=== PATIENT | male | born 1990 | race Caucasian/White ===

== ENCOUNTER 2016-10-12 19:39 | Emergency (ER) | payer BC ==
[2016-10-12] MEDS ORDERED: DEXAMETHASONE SOD PHOSPHATE 10 MG/ML VIAL IM ONE (22:30)
--- NOTE | 2016-10-12 22:31 | ERNOTE ---
Date of Service: 10/12/16 Time Seen by Provider: 10/12/16 22:14 Stated Complaint: COUGH Presenting Symptoms:: cough Source: patient Exam Limitations: no limitations Immunizations: IMMUNIZATION HX Immunizations Up to Date No History of Influenza Vaccine No Hx Pneumococcal Vaccination No Allergies/Adverse Reactions: Allergies ibuprofen Allergy (Intermediate, Verified 10/12/16 20:01) Hives Home Medications: HOME MEDICATIONS Acetaminophen [Tylenol] 325 mg PO PRN PRN 03/12/14 [Last Taken Unknown] Benzonatate [Tessalon Perle] 100 mg PO TID 10/12/16 [Last Taken 10/12/16 18:00] Dm/Pseudoephed/Acetaminophen [Day-Time Cold-Flu Softgel] 2 tab PO 10/12/16 [ Last Taken 10/12/16 19:00] Fluticasone Propionate [Flonase] 2 spray NS DAILY 10/12/16 [Last Taken Unknown] - History of Present Ilness Narrative: Coughing for one week and does not seem to be improving. Seen at a walk in clinic and was given prescriptions for a nasal steroid and Tessalon pearls. There has not been any shortness of breath or fevers. He may have had a runny nose prior to the onset of the symptoms (?). No previous respiratory disease. Tommie has has been having trouble sleeping due to the severity of the coughing. Denies any contacts with sick individuals. Timing: constant Severity: moderate Frequency/Possible Cause: Reports: no prior episodes Modifying Factors - Improves: Reports: nothing Modifying Factors - Worsens: Reports: nothing Associated Symptoms: Reports: cough. Denies: chest pain/soreness, shortness of breath, wheezing, headache Review of Systems - Review of Systems Constitutional: Present: no symptoms reported EYE: Present: blurred vision ENT: Present: no symptoms reported Respiratory: Present: See HPI Cardiology: Present: no symptoms reported Gastrointestinal/Abdominal: Present: no symptoms reported Genitourinary: Present: no symptoms reported Musculoskeletal: Present: no symptoms reported Skin: Present: no symptoms reported Neurological: Present: no symptoms reported Endocrine: Present: no symptoms reported Hematologic/Lymphatic: Present: no symptoms reported - Patient's Past Medical History Patient History - Medical: No pertinent hx Patient History - Cardiac/Respiratory: No pertinent hx Patient History - Cancer: No Hx of Cancer Patient History - Surgical Procedures: No surgical history Patient History - Other: None - Social History Living Situations: home Smoking Status: Never smoker Alcohol Use: occasionally Drug Use: none - Immunizations Immunizations Up to Date: No Hx Pneumococcal Vaccination: No History of Influenza Vaccine: No Physical Exam - Physical Exam General Appearance: Present: no apparent distress Eye Exam: Normal inspection: bilateral Ears, Nose, Throat: Present: normal ENT inspection Neck: Present: normal inspection Respiratory: Present: no accessory muscle use, lungs clear Cardiovascular/Chest: Present: regular rate, rhythm Gastrointestinal/Abdominal: Present: nondistended Back Exam: Present: normal inspection Extremity Exam: Present: normal inspection Neurological Exam: Present: alert, oriented, 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 by me X-ray Comments: No infiltrate or pneumothorax noted. - Progress/Reassessment Chief Complaint: Cough Progress Note-Subjective: 10/12/16 23:26 There is no evidence of a PE, the likely etiology if a viral infection. Departure - Departure Clinical Impression: Bronchitis Disposition: Home self-care Condition: Fair Instructions: Acute Bronchitis, [id number] Print Language: Polish Additional Instructions: It is very important that you drink a lot of water. If you become short of breath return to the ED.
[2016-10-12] MEDS ORDERED: DEXAMETHASONE SOD PHOSPHATE 10 MG/ML VIAL ONE (22:36)
[2016-10-12] MEDS ORDERED: ALBUTEROL SULFATE/IPRATROPIUM 3 ML NEBU IH ONE ×2 (23:19→23:24)
[2016-10-13 02:14] VITALS: BP 113/63
== END 2016-10-12 23:39 | disposition home or self-care (01) ==
LOC: ER 19:39
DX: J40 Bronchitis, not specified as acute or chronic (principal)